=== PATIENT | male | born 1985 | race Caucasian/White ===

== ENCOUNTER → 2021-07-01 | Outpatient (CLI) | payer OTHER ==
--- NOTE | 2021-07-01 15:12 | RAD ---
EXAM: CT FACIAL BONES WITHOUT CONTRAST. HISTORY: Nasal septal deviation. TECHNIQUE: Computed tomography of the facial bones was performed without intravenous contrast. One or more of the following individualized dose reduction techniques were utilized for this examination: 1. Automated exposure control. 2. Adjustment of the mA and/or kV according to patient size. 3. Use of iterative reconstruction technique. COMPARISON: None. FINDINGS: No facial fractures are identified. The nasal septum is mildly deviated to the left. The na karlos airway appears patent bilaterally. There is minimal mucosal thickening in the left maxillary sinu s. There are no air-fluid levels. Both ostiomeatal units are patent. The orbits are unremarkable. The included portions of the temporal bones and calvarium are unremarkab le. Limited images of the brain reveal no acute abnormality. IMPRESSION: 1. Mild leftward nasal septal deviation. Both ostiomeatal units are patent. Electronically signed by: Jcarlos Barnhart MD (07/01/2021 3:09 PM) [facility]
== END ==
LOC: CT 14:25
PROVIDERS: ATTEND Otolaryngology
DX: J34.2 Deviated nasal septum (principal)
CPT/HCPCS: 70486

== ENCOUNTER → 2021-08-16 | Outpatient (CLI) | payer OTHER ==
[~2021-08-16] MED LIST: HYDR10SY16 PO; ZOLP10TA PO
--- NOTE | 2021-08-19 13:47 | OP ---
PREOPERATIVE DIAGNOSES: Recurrent epistaxis and deviated nasal septum with associated obstructive sleep apnea. POSTOPERATIVE DIAGNOSES: Recurrent epistaxis and deviated nasal septum with associated obstructive sleep apnea. PROCEDURE PERFORMED: Nasal septoplasty with reduction of inferior nasal turbinates using radiofrequency. ANESTHESIA: General anesthetic. BLOOD LOSS: Less than 20 mL. DESCRIPTION OF PROCEDURE: The patient was placed on the operating room table in a supine position, given a general anesthetic and when he was safely intubated and vital signs were stable, the table was rotated 90 degrees. His nose was then examined. It was found that there was isolated vascular dilation in the right side of his nose, which was contributing to previous epistaxis. The mucous membrane was decongested and topical adrenaline applied after which silver nitrate was used to cauterize the selected vessels, 3 in number. The nose was then cleaned and iodine on cottonoids was applied to the interior of the nose following which the nose was decongested with adrenaline and 4% lidocaine. When adequate decongestion was achieved, the face was then prepped and draped after a sterile fashion and additional cottonoids were placed in the nose. The nose was then reexamined after cottonoids were removed. The deviation of the nasal septum was clearly seen with a deformity of the floor of the nasal septum into the right side of the nose with a compensative deviation into the left side in the superior location. The nose was then cleaned and the nasopharynx was suctioned. An incision was made in the right side at the mucocutaneous junction and dissection was carried down beneath the mucoperichondrium and the periosteum. This was facilitated by lidocaine injection, which was accomplished at the conclusion of the preparation for the surgery. With elevation of the mucous membrane, the deviation on the right side was isolated. A crossover incision was then created just anterior to the deviation to the left side of the nose. The mucoperichondrium and periosteum over the deviation was accomplished and the twisted and deviated portion was removed using Blakesley forceps. This was accomplished involving the nasal septum cartilage and some portion of the perpendicular plate of the ethmoid. This allowed removal of the obstruction on the left side. Further elevation of the mucoperichondrium from the deviation involving the premaxillary crest was accomplished. Segments of that were isolated. A scalpel blade was used to score and to crosshatch portions of the anterior cartilage, which allowed it to move to a midline position; however, it was discovered that the premaxillary crest and bony portion was fixed and removal was necessary to relieve the obstruction in the right side of his nose. Careful elevation of the mucoperichondrium and periosteum was accomplished and then selective removal of the cartilaginous and bony portion was accomplished. With removal of this tissue, the cartilage and premaxillary crest, the septum became a midline structure and obstruction was relieved. The inferior nasal turbinates were then treated by instilling 5 mL of normal saline into the anterior one-third of the inferior nasal turbinate, after which the turbinates were treated with radiofrequency using a Coblation unit, which was inserted into the anterior one-third on each side and radiofrequency energy applied until there was contraction of the anterior portion of the turbinate. The nose was then irrigated. The nasopharynx was cleared of blood and drainage. The mucosa that was elevated was reapproximated and without any tension or influence, there was a midline development of the septum. The incision site was then closed using 4-0 chromic and the elevation of the mucoperichondrium and periosteum was reapproximated with a quilting-type suture pattern with the 4-0 chromic. When this was accomplished, the nose was then irrigated. Midline position of the septum was accomplished. Gelfoam was then placed in the nose for stability and the procedure was completed. The patient was recovered from his anesthesia and then taken to recovery room in stable condition. ALDO DR: Iraida TID: [id number]
== END ==
LOC: LAB 12:43
PROVIDERS: ATTEND Otolaryngology
DX: Z01.818 Encounter for other preprocedural examination (principal); Z20.822 Contact with and (suspected) exposure to COVID-19; J34.2 Deviated nasal septum
CPT/HCPCS: U0003

== ENCOUNTER → 2021-08-19 | Day surgery (SDC) | payer OTHER ==
[~2021-08-19] MED LIST changes: +ACETAMINOPHEN 500 MG TABLET PO ONE; +DEXAMETHASONE SOD PHOS 4 MG/ML VIAL. ONE; +GABAPENTIN 100 MG CAPSULE. PO ONE; +GABAPENTIN 300 MG CAPSULE. PO ONE; +GABAPENTIN 300 MG CAPSULE. PO SCH; +GELATIN SPONGE SIZE 12-7MM SPONGE. ONE; +GLYCOPYRROLATE 1 MG/5 ML VIAL. ONE; +IPRATRPIUM/ALBUTEROL 0.5/2.5MG 3 ML NEBU. NEB PRN; +IV RINGERS SOLUTION,LACTATED 1,000 ML IV SCH; +LIDOCAINE 1%/EPI 1:100,000 20 ML VIAL. IJ ONE; +LIDOCAINE 1%/EPI 1:100,000 20 ML VIAL. ONE; +LIDOCAINE 2% PF 5 ML VIAL. ONE; +MELOXICAM 15 MG TABLET. PO ONE; +MIDAZOLAM HCL PF 2 MG/2 ML VIAL. IV ONE; +MIDAZOLAM HCL PF 2 MG/2 ML VIAL. ONE; +NEOSTIGMINE 10 MG/10 ML VIAL. ONE; +ONDANSETRON PF 4 MG/2 ML VIAL. IV PRN; +ONDANSETRON PF 4 MG/2 ML VIAL. ONE; +OXYMETAZOLINE 0.05% NASAL SPRAY 30ML BOTTLE. NS ONE; +PROPOFOL 10,000 MCG/ML (20ML) VIAL IV ONE; +ROCURONIUM 50 MG/5 ML VIAL. ONE; +SEVOFLURANE 61 TO 120 MINUTES. IH ONE; +SILVER NITRATE STICK TP ONE; +SUCCINYLCHOLINE 200 MG/10 ML VIAL. ONE; +ceFAZolin SODIUM 2 GM in IV DEXTROSE 5% 50 ML IV ONE; +ceFAZolin SODIUM IV Push 1 GM VIAL. IVP ONE
[2021-08-19 11:30] VITALS: BP 133/93
--- NOTE | 2021-09-09 12:53 | OP ---
DATE OF SURGERY: 08/19/2021 PREOPERATIVE DIAGNOSES: Recurrent epistaxis and deviated nasal septum with associated obstructive sleep apnea. POSTOPERATIVE DIAGNOSES: Recurrent epistaxis and deviated nasal septum with associated obstructive sleep apnea. PROCEDURE PERFORMED: Nasal septoplasty with reduction of inferior nasal turbinates using radiofrequency. ANESTHESIA: General anesthetic. BLOOD LOSS: Less than 20 mL. DESCRIPTION OF PROCEDURE: The patient was placed on the operating room table in a supine position, given a general anesthetic and when he was safely intubated and vital signs were stable, the table was rotated 90 degrees. His nose was then examined. It was found that there was isolated vascular dilation in the right side of his nose, which was contributing to previous epistaxis. The mucous membrane was decongested and topical adrenaline applied after which silver nitrate was used to cauterize the selected vessels, 3 in number. The nose was then cleaned and iodine on cottonoids was applied to the interior of the nose following which the nose was decongested with adrenaline and 4% lidocaine. When adequate decongestion was achieved, the face was then prepped and draped after a sterile fashion and additional cottonoids were placed in the nose. The nose was then reexamined after cottonoids were removed. The deviation of the nasal septum was clearly seen with a deformity of the floor of the nasal septum into the right side of the nose with a compensative deviation into the left side in the superior location. The nose was then cleaned and the nasopharynx was suctioned. An incision was made in the right side at the mucocutaneous junction and dissection was carried down beneath the mucoperichondrium and the periosteum. This was facilitated by lidocaine injection, which was accomplished at the conclusion of the preparation for the surgery. With elevation of the mucous membrane, the deviation on the right side was isolated. A crossover incision was then created just anterior to the deviation to the left side of the nose. The mucoperichondrium and periosteum over the deviation was accomplished and the twisted and deviated portion was removed using Blakesley forceps. This was accomplished involving the nasal septum cartilage and some portion of the perpendicular plate of the ethmoid. This allowed removal of the obstruction on the left side. Further elevation of the mucoperichondrium from the deviation involving the premaxillary crest was accomplished. Segments of that were isolated. A scalpel blade was used to score and to crosshatch portions of the anterior cartilage, which allowed it to move to a midline position; however, it was discovered that the premaxillary crest and bony portion was fixed and removal was necessary to relieve the obstruction in the right side of his nose. Careful elevation of the mucoperichondrium and periosteum was accomplished and then selective removal of the cartilaginous and bony portion was accomplished. With removal of this tissue, the cartilage and premaxillary crest, the septum became a midline structure and obstruction was relieved. The inferior nasal turbinates were then treated by instilling 5 mL of normal saline into the anterior one-third of the inferior nasal turbinate, after which the turbinates were treated with radiofrequency using a Coblation unit, which was inserted into the anterior one-third on each side and radiofrequency energy applied until there was contraction of the anterior portion of the turbinate. The nose was then irrigated. The nasopharynx was cleared of blood and drainage. The mucosa that was elevated was reapproximated and without any tension or influence, there was a midline development of the septum. The incision site was then closed using 4-0 chromic and the elevation of the mucoperichondrium and periosteum was reapproximated with a quilting-type suture pattern with the 4-0 chromic. When this was accomplished, the nose was then irrigated. Midline position of the septum was accomplished. Gelfoam was then placed in the nose for stability and the procedure was completed. The patient was recovered from his anesthesia and then taken to recovery room in stable condition. ALDO DR: Iraida TID: [id number]
== END | disposition home or self-care (01) ==
LOC: SURG 06:54
PROVIDERS: ATTEND Otolaryngology
DX: R04.0 Epistaxis (principal); J34.2 Deviated nasal septum; J34.3 Hypertrophy of nasal turbinates; G47.33 Obstructive sleep apnea (adult) (pediatric); Z98.890 Other specified postprocedural states; Z79.899 Other long term (current) drug therapy
CPT/HCPCS: 30520; 30801; J0171; J0330; J0690; J1100; J2001; J2250; J2405; J2704; J2710; J3010; J3490; J7120